=== PATIENT | female | born 1995 | race Caucasian/White ===

== ENCOUNTER → 2024-07-16 15:03 | Outpatient (BNVA) | payer BC, SELFPAY | PROVIDERS: Visit Provider Nurse Practitioner Women's Health | DX: N91.2 Amenorrhea, unspecified (principal); E66.01 Morbid (severe) obesity due to excess calories; Z68.41 Body mass index [BMI] 40.0-44.9, adult; Z78.9 Other specified health status | CPT/HCPCS: 81025; 83036; 84443; 84702 ==

== ENCOUNTER → 2024-07-22 08:04 | Outpatient (BNVA) | payer BC, SELFPAY | PROVIDERS: Visit Provider Nurse Practitioner Women's Health | DX: Z34.91 Encounter for supervision of normal pregnancy, unspecified, first trimester (principal) | CPT/HCPCS: 76817 ==

== ENCOUNTER 2024-07-25 18:26 | Emergency (ER) | payer BC, SELFPAY ==
[2024-07-25 18:33] VITALS: BP 123/84; PULSE 73; RESP 18; TEMP 36.6; O2SAT 99; BMI 42.3
[2024-07-25 19:43] LABS: Alanine Aminotransferase 19 U/L (0-33); Albumin Level 4.3 g/dL (3.5-5.2); Alkaline Phosphatase 94 U/L (35-105); Anion Gap 17.2 (5-19); Aspartate Amino Transferase 16 U/L (0-32); Blood Urea Nitrogen 7 mg/dL (6-20); Calcium 9.4 mg/dL (8.5-10.5); Carbon Dioxide 21 mmol/L (22-29); Chloride 102 mmol/L (98-107); Creatinine Clr Calc Pharmacy 175.3442; Globulin 3.8 g/dL (1.3-4.6); Glomerular Filtration Rate 118.2 mL/min (90-130); Glucose 91 mg/dL (65-115); Lipase 32 U/L (13-60); Osmolality Calculated 280 mOsm/kg (285-295); Potassium 4.2 mmol/L (3.5-5.1); Sodium 136 mmol/L (136-145); Total Bilirubin 0.2 mg/dL (0.15-1.2); Total Protein 8.1 g/dL (6.6-8.7)
[2024-07-25 20:07] VITALS: BP 124/67; PULSE 75; RESP 18; O2SAT 100
[2024-07-25 20:09] LABS: Bilirubin Urine Negative (Negative); Blood Urine Negative (Negative); Glucose Urine UA Negative (Normal); Ketones Urine Negative (Negative); Leukocyte Esterase Urine Trace (Negative); Nitrate Urine Negative (Negative); Protein Urine Negative (Negative); Specific Gravity, Urine 1.009 (1.005-1.030); Urine Appearance Clear (CLEAR); Urine Color Yellow (Yellow); Urobilinogen Urine 0.2 mg/dL (Negative); pH Urine 5.5 (5-7)
[2024-07-25 20:11] LABS: Add Urine Microscopic? YES; Bacteria Urine None Seen /hpf; Hyaline Casts Urine 0-4 /lpf; RBC Urine 0-2 /hpf (0-2); Squamous Epithelial Cell Urine 0-5 /hpf (0-5)
--- NOTE | 2024-07-25 20:18 | ED_ITS ---
HPI - Nausea/Vomiting/Diarrhea 2 General: Chief complaint: Nausea/Vomiting/Diarrhea Stated complaint: Nausa 7 Weeks Time Seen by Provider: 07/25/24 19:54 Source: patient Mode of arrival: ambulatory Limitations: no limitations History of Present Illness: 29yo female presents with SO for evaluat ion of nausea/ vomiting in the presence of . Patient is at approximately 7 weeks gestation. Reports she has tried unisom/vit B6, reglan, phenergan. States she was seen in [facility] 2 days ago for same complaint and received zofran, which helped. Reports she was diagnosed with a UTI and prescribed nitrofurantoin. States her OBGYN does not want her taking zofran due to potential side effects to the baby. States she has been getting dizzy with standing. States she is not able to keep fluids down and has had some abdominal cramping. Denies vaginal bleeding, fever, chills, body aches, diarrhea, dysuria, any other concerns at this time. Associated nausea: Yes Associated symtoms: Reports nausea; Denies chest pain or dysuria Related Data Home Medications ?Medication ?Instructions ?Recorded ?Confirmed bupropion HCl 300 mg 24 hr tablet, 300 mg PO QAM 07/1607/16/24 extended release (Wellbutrin XL) fexofenadine 180 mg tablet 180 mg PO DAILY 07/16/24 (Sue Allergy) linoleic acid-sunflower oil 500 cap PO BID 07/16/24 mg-1,000 mg capsule omeprazole 40 mg capsule,delayed 40 mg PO DAILY 07/16/24 release vits no.126-ferrous fum tab PO DAILY 07/16/24 07/16/24 28 mg iron-folic acid 800 mcg tablet (Classic ) Previous Rx's ?Medication ?Instructions ?Recorded promethazine 25 mg tablet 25 mg PO Q6H PRN nausea and 07/19/24 vomiting #60 tabs metoclopramide HCl 10 mg tablet 10 mg PO Q6H PRN nause a and 07/25/24 vomiting #30 tabs Allergies Allergy/AdvReac Type Severity Reaction Status Date / Time Penicillins Allergy ALGY-Hives Verified 07/25/24 18:37 tree nuts Allergy Severe ALGY-Anaphy Uncoded 07/16/24 14:04 laxis Review of Systems 2 Const: Denies: fever(s), chills or body aches Card: Denies: chest pain Resp: Denies: dyspnea GI: Reports: nausea and vomiting; Denies: diarrhea : Denies: difficulty voiding, dysuria, oliguria or vaginal bleeding PFSH ED 2 PFSH: Medical History (Updated 07/25/24 @ 23:02 by LAUREL Moya) Anxiety and depression Chronic GERD Asthma No pertinent past medical history neghx: htn, dm, thyroid, dvt/pe PCP: [facility] History (Updated 07/16/24 @ 14:28 by Agnes Bates APN, WHNP) History of endoscopy (~2023) normal evaluation. No pertinent past surgical history Family History Mother Thyroid disease Denies family history of Colon cancer Ovarian cancer Prostate cancer Diabetes Heart disease Hyperlipidemia Breast cancer Hypertension Uterine cancer Stroke Social History Smoking and tobacco/nicotine status: never used tobacco/nicotine Physical Exam 2 Const: COMMON NORMALS: no acute distress, patient oriented x3, healthy appearing and alert GENERAL APPEARANCE: cooperative O RIENTATION/CONSCIOUSNESS: Yes awake OTHER: Patient is ambulatory to the exam room unassisted. She is sitting upright on the stretcher in [facility]. She is interactive with exam with no difficulty. Family is at bedside. HENMT: COMMON NORMALS: normocephalic and atraumatic HEAD & SCALP: n ormocephalic and atraumatic Resp: COMMON NORMALS: normal respiratory effort Back/Pelvis: COMMON NORMALS: thoraco-lumbar ROM normal Extremity: COMMON NORMALS: full ROM Neuro: COMMON NORMALS: patient oriented x3 and moves all extremities S ENSORIUM/ORIENTATION: Yes alert Psych: COMMON NORMALS: cooperative Course 2 Vital Signs: Vital signs: Vital Signs Temperature 97.9 F 07/25/24 18:33 Pulse Rate 81 07/25/24 23:31 Respiratory Rate 18 07/25/24 23:31 Blood Pressure 109/62 07/25/24 23:31 Pulse Oximetry 99 07/25/24 23:31 Oxygen Delivery Me thod Room Air 07/25/24 22:25 MDM - Nausea/Vomiting/Diarrhea Medical Decision Making 29yo female presents with SO for evaluation of nausea in the presence of . Patient is at approximately 7 weeks gestation. Reports she has tried unisom/vit B6, reglan, phenergan. States she was seen in [facility] 2 days ago for same complaint and received zofran, which helped. Reports she was diagnosed with a UTI and prescribed nitrofurantoin. States her OBGYN does not want her taking zofran due to potential side effects to the baby. States she has been getting dizzy with standing. States she is not able to keep fluids down and has had some abdominal cramping. Denies vaginal bleeding, fever, chills, body aches, diarrhea, dysuria, any other concerns at this time. Patients is nontoxic in appearance. Vital signs stable. Differential diagnoses include but are not limited to: N/v of , dehydration, acute cystitis. pyelonephritis No leukocytosis or anemia, white blood cell count noted to be 11.18 with hemoglobin of 13.3. No electrolyte, renal, or hepatic abnormalities noted. No bacteria noted on UA. Discussed these findings with patient and family. Advised that the nitrofurantoin does appear to be treating the urinary tract infection. Patient did receive 1 L normal saline bolus with metoclopramide and diphenhydramine. She did report improvement in her symptoms. Prescription of metoclopramide was sent to patient's pharmacy. Advised that she use it with diphenhydramine. Discussed use of abi as well to help with nausea and advised to encourage fluid intake. Recommend she contact her CYBER TRANSPORT SYSTEMS SPECIALIST in the next few days with an update of symptoms and to discuss to recheck. Return precautions provided. Patient and family state understanding and have no further questions or concerns at this time. Lab Data I reviewed the patient's lab results. 07/25/24 20:37 07/25/24 19:21 Laboratory Results WBC 11.18 10^3/uL (3.29-11.43) 07/25/24 20:37 Corrected WBC Cancelled 07/25/24 19:21 RBC 5.05 10^6/uL (3.85-5.65) 07/25/24 20:37 Hgb 13.30 g/dL (11.27-16.99) 07/25/24 20:37 Hct 42.3 % (36-47) 07/25/24 20:37 MCV 83.8 fl (85-98) L 07/25/24 20:37 MCH 26.3 pg (27-33) L 07/25/24 20:37 MCHC 31.4 g/dL (30-55) 07/25/24 20:37 RDW 14.6 % (12.1-15.1) 07/25/24 20:37 Plt Count 182 10^3/cmm (157-399) 07/25/24 20:37 MPV 12.1 fL (7.4-10.4) H 07/25/24 20:37 Gran % Cancelled 07/25/24 19:21 Neut % (Auto) 69.8 % 07/25/24 20:37 Lymph % (Auto) 23.5 % 07/25/24 20:37 [place] % (Auto) 4.7 % 07/25/24 20:37 Eos % (Auto) 1.4 % 07/25/24 20:37 Baso % (Auto) 0.3 % 07/25/24 20:37 Neut # (Auto) 7.80 10^3/uL (1.8-7.7) H 07/25/24 20:37 Lymph # (Auto) 2.6 10^3/uL (0.8-4.8) 07/25/24 20:37 [place] # (Auto) 0.5 10^3/uL (0.2-0.9) 07/25/24 20:37 Eos # (Auto) 0.2 10^3/uL (0.0-0.8) 07/25/24 20:37 Baso # (Auto) 0.0 10^3/uL (0.0-0.1) 07/25/24 20:37 Absolute Gran (auto) Cancelled 07/25/24 19:21 Nucleated RBC % (auto) 0 % 07/25/24 20: Nucleated RBCs # 0.0 /100WBC 07/25/24 20:37 Sodium 136 mmol/L (136-145) 07/25/24 19:21 Potassium 4.2 mmol/L (3.5-5.1) 07/25/24 19:21 Chloride 102 mmol/L (98-107) 07/25/24 19:21 Carbon Dioxide 21 mmol/L (22-29) L 07/25/24 19:21 Anion Gap 17.2 (5-19) 07/25/24 19:21 BUN 7 mg/dL (6-20) 07/25/24 19:21 Creatinine 0.6 mg/dL (0.5-0.9) 07/25/24 19:21 GFR Calculation 118.2 mL/min (90-130) 07/25/24 19:21 Glucose 91 mg/dL (65-115) 07/25/24 19:21 Calculated Osmolality 280 mOsm/kg (285-295) L 07/25/24 19:21 Calcium 9.4 mg/dL (8.5-10.5) 07/25/24 19:21 Total Bilirubin 0.2 mg/dL (0.15-1.2) 07/25/24 19:21 AST 16 U/L (0-32) 07/25/24 19:21 ALT 19 U/L (0-33) 07/25/24 19:21 Alkaline Phosphatase 94 U/L (35-105) 07/25/24 19:21 Total Protein 8.1 g/dL (6.6-8.7) 07/25/24 19:21 Albumin 4.3 g/dL (3.5-5.2) 07/25/24 19:21 Globulin 3.8 g/dL (1.3-4.6) 07/25/24 19:21 Lipase 32 U/L (13-60) 07/25/24 19:21 Urine Color Yellow (Yellow) 07/25/24 20:03 Urine Appearance Clear (CLEAR) 07/25/24 20:03 Urine pH 5.5 (5-7) 07/25/24 20:03 Ur Specific Jackson 1.009 (1.005-1.030) 07/25/24 20:03 Urine Protein Negative (Negative) 07/25/24 20:03 Urine Glucose (UA) Negative (Normal) 07/25/24 20:03 Urine Ketones Negative (Negative) 07/25/24 20:03 Urine Blood Negative (Negative) 07/25/24 20:03 Urine Nitrate Negative (Negative) 07/25/24 20:03 Urine Bilirubin Negative (Negative) 07/25/24 20:03 Urine Urobilinogen 0.2 mg/dL (Negative) 07/25/24 20:03 Ur Leukocyte Esterase Trace (Negative) A 07/25/24 20:03 Urine RBC 0-2 /hpf (0-2) 07/25/24 20:03 Urine WBC 11-20 /hpf (0-5) H 07/25/24 20:03 Ur Squamous Epith Cells 0-5 /hpf (0-5) 07/25/24 20:03 Amorphous Sediment Not Reportable 07/25/24 20:03 Urine Bacteria None seen /hpf (NONE) 07/25/24 20:03 Hyaline Casts 0-4 /lpf H 07/25/24 20:03 No radiology studies performed this visit Discharge Plan Discharge Patient Disposition: Home Clinical Impression: Nausea/vomiting in Condition: Stable Prescriptions: New metoclopramide HCl 10 mg tablet 10 mg PO Q6H PRN (Reason: nausea and vomiting) Qty: 30 0RF No Action omeprazole 40 mg capsule,delayed release(DR/EC) 40 mg PO DAILY bupropion HCl [Wellbutrin XL] 300 mg tablet extended release 24 hr 300 mg PO QAM fexofenadine [Sue Allergy] 180 mg tablet 180 mg PO DAILY Classic 28 mg iron- 800 mcg tablet PO DAILY linoleic acid-sunflower oil 500-1,000 mg capsule PO BID promethazine 25 mg tablet 25 mg PO Q6H PRN (Reason: nausea and vomiting) Qty: 60 0RF Discharge Orders: Discharge ED (Routine); Ordered 07/25/24 Ordered By: Sumeet Crowley Discharge Diet: Advance as tolerated Discharge Activity: Resume usual activity Patient Instructions: Nausea and Vomiting in (ED) Activity Restrictions/Additional Instructions: A prescription of metoclopramide has been sent to the pharmacy for you to use for the nausea. You may also use [id number] Benadryl with the metoclopramide to help with the nausea. Do not take the metoclopramide with the promethazine, only 1 or the other. 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
[2024-07-25 20:35] VITALS: BP 124/67; PULSE 67; RESP 16; O2SAT 100
[2024-07-25 20:59] LABS: Basophils % 0.3 %; Eosinophils # 0.2 10^3/uL (0.0-0.8); Eosinophils % 1.4 %; Hematocrit 42.3 % (36-47); Lymphocytes # 2.6 10^3/uL (0.8-4.8); Lymphocytes % 23.5 %; Mean Corpuscular HGB Conc 31.4 g/dL (30-55); Mean Corpuscular Hemoglobin 26.3 pg (27-33); Mean Corpuscular Volume 83.8 fl (85-98); Mean Platelet Volume 12.1 fL (7.4-10.4); Monocytes # 0.5 10^3/uL (0.2-0.9); Monocytes % 4.7 %; Neutrophils % 69.8 %; Nucleated Red Blood Cells % 0 %; Platelet Count 182 10^3/cmm (157-399); Red Blood Count 5.05 10^6/uL (3.85-5.65); Red Cell Distribution Width 14.6 % (12.1-15.1); White Blood Count 11.18 10^3/uL (3.29-11.43)
[2024-07-25 21:33] VITALS: BP 104/60; PULSE 69; RESP 16; O2SAT 100
[2024-07-25] MEDS: sodium chloride 0.9% 1,000 ML 999 ML IV (21:35)
[2024-07-25] MEDS: metoclopramide 5 mg/mL SDV 2 mL 10 MG XX (21:35)
[2024-07-25] MEDS: diphenhydrAMINE 50 mg/mL SDV 1mL 25 MG IVP ×2 (21:35→22:05)
[2024-07-25 22:25] VITALS: BP 109/51; PULSE 79; RESP 16; O2SAT 99
[2024-07-25 23:31] VITALS: BP 109/62; PULSE 81; RESP 18; O2SAT 99
== END 2024-07-25 23:35 | disposition home or self-care (01) ==
PROVIDERS: Emergency Medicine; Emergency Provider Nurse Practitioner
DX: O21.9 Vomiting of pregnancy, unspecified (principal); Z3A.01 Less than 8 weeks gestation of pregnancy
CPT/HCPCS: 36415; 80053; 81001; 83690; 85025; 96374; 96375; 99284; J1200; J2765; J7030

== ENCOUNTER → 2024-08-16 13:12 | Outpatient (BNVA) | payer BC, SELFPAY | PROVIDERS: Visit Provider Nurse Practitioner Women's Health | DX: Z34.91 Encounter for supervision of normal pregnancy, unspecified, first trimester (principal) | CPT/HCPCS: 80307; 84315; 85025; 86592; 86762; 86803; 86850; 86900; 87086; 87340; 87806 ==

== ENCOUNTER → 2024-09-03 08:00 | Outpatient (BNVA) | payer BC, SELFPAY | PROVIDERS: Visit Provider Nurse Practitioner Women's Health | DX: O09.90 Supervision of high risk pregnancy, unspecified, unspecified trimester (principal); O09.299 Supervision of pregnancy with other poor reproductive or obstetric history, unspecified trimester | CPT/HCPCS: 82950; 84315; 86850; 86900; 87491; 87591; 87624; 87661 ==

== ENCOUNTER → 2024-09-26 14:04 | Outpatient (BNVA) | payer BC, SELFPAY | PROVIDERS: Visit Provider Nurse Practitioner Women's Health | DX: Z34.80 Encounter for supervision of other normal pregnancy, unspecified trimester (principal) | CPT/HCPCS: 84315; 87086 ==

== ENCOUNTER 2024-10-06 12:39 | Outpatient (CLI) | payer BC, SELFPAY ==
[2024-10-06 13:02] LABS: Total Volume, Urine 3500 mL
== END 2024-10-06 12:40 | disposition home or self-care (01) ==
PROVIDERS: Visit Provider Nurse Practitioner Women's Health
DX: O09.299 Supervision of pregnancy with other poor reproductive or obstetric history, unspecified trimester (principal)
CPT/HCPCS: 84156

== ENCOUNTER → 2024-10-28 09:27 | Outpatient (BNVA) | payer BC, SELFPAY | PROVIDERS: Visit Provider Nurse Practitioner Women's Health | DX: Z36.9 Encounter for antenatal screening, unspecified (principal) | CPT/HCPCS: 76805 ==

== ENCOUNTER → 2024-11-08 14:06 | Outpatient (BNVA) | payer BC, SELFPAY | PROVIDERS: Visit Provider Nurse Practitioner Women's Health | DX: Z34.80 Encounter for supervision of other normal pregnancy, unspecified trimester (principal) | CPT/HCPCS: 84315 ==

== ENCOUNTER 2024-12-02 11:21 | Outpatient (CLI) | payer BC, SELFPAY ==
[2024-12-02 11:21] VITALS: BMI 27.1
[2024-12-02 11:39] VITALS: BP 125/64; PULSE 74
[2024-12-02 11:54] VITALS: BP 116/65; PULSE 75
[2024-12-02 12:09] VITALS: BP 119/66; PULSE 82
[2024-12-02 12:11] LABS: Glucose Urine UA Negative (Normal); Nitrate Urine Negative (Negative); Specific Gravity, Urine 1.012 (1.005-1.030)
[2024-12-02 12:24] VITALS: BP 115/64; PULSE 74
[2024-12-02 12:36] VITALS: BP 119/66; PULSE 82; RESP 17; O2SAT 98
== END 2024-12-02 12:36 | disposition home or self-care (01) ==
LOC: OPOB 11:27 → OBGYN 11:28
PROVIDERS: Visit Provider Obstetrics & Gynecology
DX: O26.899 Other specified pregnancy related conditions, unspecified trimester (principal); Z3A.00 Weeks of gestation of pregnancy not specified; R10.9 Unspecified abdominal pain; R25.2 Cramp and spasm
CPT/HCPCS: 81001; 99211

== ENCOUNTER → 2024-12-11 15:12 | Outpatient (BNVA) | payer BC, SELFPAY | PROVIDERS: Visit Provider Nurse Practitioner Women's Health | DX: Z34.90 Encounter for supervision of normal pregnancy, unspecified, unspecified trimester (principal); Z34.80 Encounter for supervision of other normal pregnancy, unspecified trimester | CPT/HCPCS: 82950; 84315; 85025 ==

== ENCOUNTER → 2024-12-18 14:04 | Outpatient (BNVA) | payer BC, SELFPAY | PROVIDERS: Visit Provider Nurse Practitioner Women's Health | DX: R10.2 Pelvic and perineal pain (principal) | CPT/HCPCS: 76815; 76817 ==

== ENCOUNTER → 2024-12-25 13:59 | Outpatient (BNVA) | payer BC, SELFPAY | PROVIDERS: Visit Provider Obstetrics & Gynecology | DX: Z34.90 Encounter for supervision of normal pregnancy, unspecified, unspecified trimester (principal) | CPT/HCPCS: 84315 ==

== ENCOUNTER 2025-01-08 07:49 | Outpatient (CLI) | payer BC, SELFPAY ==
--- NOTE | 2025-01-08 08:00 | USR_ITS ---
PROCEDURE INFORMATION: Exam: US , Follow up Exam date and time: 01/08/2025 8:01 AM Age: 29 years old Clinical indication: Screening exam; Routine US, uterus; Additional info: Z34.80 - encounter for supervision of other normal pregna. . . LABS AND CLINICAL REPORTS: Last menstrual period start date: Unknown Gestational age (Established): 31 w 2 d Estimated due date (Established): 03/10/2025 TECHNIQUE: Imaging protocol: Transabdominal ultrasound of the uterus, real time with image documentation. Follow-up (eg, re-evaluation of size by measuring standard growth parameters and amniotic fluid volume, re-evaluation of organ system(s) suspected or confirmed to be abnormal on a previous scan). COMPARISON: US OB lmt with transvaginal 12/18/2024 2:14 PM FINDINGS: Gestation: Single live intrauterine heart rate: 135 bpm presentation and position: Cephalic presentation Placenta: Placenta is posterior Amniotic fluid index: JULIA is 14.21 cm. BIOMETRY: Gestational age (AUA): Estimated gestational age 32 week 2 day Estimated due date (AUA): 03/03/2025 Estimated weight: 1966.39 g. EFW by AC, BPD, FL, HC, Hadlock 1985 75th percentile Biparietal diameter (BPD): 7.87 cm. EGA (BPD) is 31 w 4 d. 48.8 % percentile Head circumference (HC): 29.11 cm. EGA (HC) is 32 w 1 d. 34 % percentile Abdominal circumference (AC): 28.53 cm. EGA (AC) is 32 w 4 d. 82 % percentile Femur length (FL): 6.28 cm. EGA (FL) is 32 w 4 d. 70.2 % percentile HC/AC: 1.02. (Normal range: 0.96 - 1.13) FL/HC: 21.57. (Normal range: 19.33 - 21.36) FL/BPD: 79.8. (Normal range: 71 - 87) FL/AC: 22.01. (Normal range: 20 - 24) MATERNAL: Cervix: Cervix is 4.1 cm in length and closed. US/[place] [id number] IMPRESSION: Single live intrauterine of approximately 32 weeks 2 days gestational age.
== END 2025-01-08 07:50 | disposition home or self-care (01) ==
LOC: RAD 07:50
PROVIDERS: PCP Family Medicine; Visit Provider Obstetrics & Gynecology
DX: Z34.80 Encounter for supervision of other normal pregnancy, unspecified trimester (principal)
CPT/HCPCS: 76816

== ENCOUNTER → 2025-01-13 14:09 | Outpatient (BNVA) | payer BC, SELFPAY | PROVIDERS: PCP Family Medicine; Visit Provider Obstetrics & Gynecology | DX: O09.893 Supervision of other high risk pregnancies, third trimester (principal); Z3A.32 32 weeks gestation of pregnancy | CPT/HCPCS: 84315 ==

== ENCOUNTER → 2025-01-27 13:11 | Outpatient (BNVA) | payer BC, SELFPAY | PROVIDERS: PCP Family Medicine; Visit Provider Obstetrics & Gynecology | DX: O09.893 Supervision of other high risk pregnancies, third trimester (principal); Z3A.34 34 weeks gestation of pregnancy | CPT/HCPCS: 84315 ==

== ENCOUNTER 2025-02-06 19:07 | Outpatient (CLI) | payer BC, SELFPAY ==
[2025-02-06] VITALS (7 sets, daily range): BP systolic 115–125; BP diastolic 61–69; PULSE 73–82; TEMP 37–37.1; BMI 45.0
== END 2025-02-06 21:00 | disposition home or self-care (01) ==
LOC: OPOB 19:07 → OBGYN 19:09
PROVIDERS: PCP Family Medicine; Visit Provider Obstetrics & Gynecology
DX: O13.9 Gestational [pregnancy-induced] hypertension without significant proteinuria, unspecified trimester (principal); Z3A.00 Weeks of gestation of pregnancy not specified
CPT/HCPCS: 59025; 99211

== ENCOUNTER 2025-02-10 11:35 | Outpatient (CLI) | payer BC, SELFPAY ==
--- NOTE | 2025-02-10 11:30 | USR_ITS ---
PROCEDURE INFORMATION: Exam: US , Follow up Exam date and time: 02/10/2025 11:50 AM Age: 30 years old Clinical indication: Screening exam; Routine US, uterus; Additional info: O09.299 - supervision of with other poor reprod. . . , LABS AND CLINICAL REPORTS: Gestational age (Established): 36 w 0 d Estimated due date (Established): 03/10/2025 TECHNIQUE: Imaging protocol: Transabdominal ultrasound of the uterus, real time with image documentation. Follow-up (eg, re-evaluation of size by measuring standard growth parameters and amniotic fluid volume, re-evaluation of organ system(s) suspected or confirmed to be abnormal on a previous scan). COMPARISON: [place] [id number] 01/08/2025 8:01 AM FINDINGS: Gestation: Intrauterine gestation. heart rate: 135 bpm presentation and position: Cephalic. Amniotic fluid index: JULIA is 13.94 cm. Maximum vertical pocket 5.3 cm. BIOMETRY: Gestational age (AUA): 36 weeks 1 day. Estimated due date (AUA): 03/09/2025. Estimated weight: 2829.48 g. EFW by AC, BPD, FL, HC, Hadlock 1985 Biparietal diameter (BPD): 8.69 cm. EGA (BPD) is 35 w 1 d. 31.5 % percentile Head circumference (HC): 32.86 cm. EGA (HC) is 37 w 2 d. 52.7 % percentile Abdominal circumference (AC): 31.8 cm. EGA (AC) is 35 w 5 d. 52.2 % percentile Femur length (FL): 7.12 cm. EGA (FL) is 36 w 3 d. 58.5 % percentile HC/AC: 1.03. (Normal range: 0.92 - 1.08) FL/HC: 21.67. (Normal range: 20.2 - 22.17) FL/BPD: 81.93. (Normal range: 71 - 87) FL/AC: 22.39. (Normal range: 20 - 24) BIOPHYSICAL PROFILE: Biophysical profile score (BPP): 8/8. MATERNAL: Cervix: Cervical length measures 6 cm. US/US OB F/U w BPP wo NST IMPRESSION: 1. Single live intrauterine with normal heart rate. 2. Biophysical profile score 12/06. 3. Estimated gestational age 36 weeks 1 day.
== END 2025-02-10 11:36 | disposition home or self-care (01) ==
LOC: RAD 11:35
PROVIDERS: PCP Family Medicine; Visit Provider Obstetrics & Gynecology
DX: O09.293 Supervision of pregnancy with other poor reproductive or obstetric history, third trimester (principal); Z3A.36 36 weeks gestation of pregnancy
CPT/HCPCS: 76816; 76819; 84315; 87081

== ENCOUNTER → 2025-02-17 12:50 | Outpatient (BNVA) | payer BC, SELFPAY | PROVIDERS: PCP Family Medicine; Visit Provider Obstetrics & Gynecology | DX: O09.293 Supervision of pregnancy with other poor reproductive or obstetric history, third trimester (principal); Z3A.32 32 weeks gestation of pregnancy; E66.9 Obesity, unspecified; Z68.41 Body mass index [BMI] 40.0-44.9, adult; Z87.59 Personal history of other complications of pregnancy, childbirth and the puerperium | CPT/HCPCS: 84315 ==

== ENCOUNTER 2025-02-19 10:50 | Outpatient (CLI) | payer BC, SELFPAY ==
[2025-02-19] VITALS (7 sets, daily range): BP systolic 118–136; BP diastolic 67–84; PULSE 69–102; BMI 46.5
[2025-02-19 12:38] LABS: Hematocrit 34.3 % (36-47); Hemoglobin 10.90 g/dL (11.27-16.99); Mean Corpuscular HGB Conc 31.8 g/dL (30-55); Mean Corpuscular Hemoglobin 26.0 pg (27-33); Mean Corpuscular Volume 81.7 fl (85-98); Nucleated Red Blood Cells % 0 %; Platelet Count 140 10^3/cmm (157-399); Red Blood Count 4.20 10^6/uL (3.85-5.65); White Blood Count 10.00 10^3/uL (3.29-11.43)
[2025-02-19 12:40] LABS: Glucose Urine UA Negative (Normal); Nitrate Urine Negative (Negative); Specific Gravity, Urine 1.009 (1.005-1.030)
[2025-02-19 12:45] LABS: Add Urine Microscopic? YES
[2025-02-19 12:59] LABS: Alanine Aminotransferase 13 U/L (0-33); Albumin Level 3.4 g/dL (3.5-5.2); Alkaline Phosphatase 120 U/L (35-105); Anion Gap 20.4 (5-19); Aspartate Amino Transferase 13 U/L (0-32); Blood Urea Nitrogen 5 mg/dL (6-20); Calcium 9.1 mg/dL (8.5-10.5); Carbon Dioxide 20 mmol/L (22-29); Chloride 103 mmol/L (98-107); Creatinine Clr Calc Pharmacy 275.9627; Globulin 3.5 g/dL (1.3-4.6); Glucose 105 mg/dL (65-115); Osmolality Calculated 286 mOsm/kg (285-295); Potassium 4.4 mmol/L (3.5-5.1); Sodium 139 mmol/L (136-145); Total Protein 6.9 g/dL (6.6-8.7); Uric Acid 5.1 mg/dL (2.4-5.7)
[2025-02-19 13:11] LABS: UPRO/UCREAT Ratio 0.13 mg/mg CR
== END 2025-02-19 13:30 | disposition home or self-care (01) ==
LOC: OPOB 10:52 → OBGYN 10:52
PROVIDERS: PCP Family Medicine; Visit Provider Family Medicine
DX: O13.9 Gestational [pregnancy-induced] hypertension without significant proteinuria, unspecified trimester (principal); Z3A.00 Weeks of gestation of pregnancy not specified; N89.8 Other specified noninflammatory disorders of vagina
CPT/HCPCS: 36415; 59025; 80053; 81001; 82570; 83615; 83986; 84112; 84156; 84550; 85025; 99211

== ENCOUNTER → 2025-02-24 12:55 | Outpatient (BNVA) | payer BC, SELFPAY | PROVIDERS: PCP Family Medicine; Visit Provider Obstetrics & Gynecology | DX: O09.893 Supervision of other high risk pregnancies, third trimester (principal); Z3A.38 38 weeks gestation of pregnancy; Z87.59 Personal history of other complications of pregnancy, childbirth and the puerperium; E66.89 Other obesity not elsewhere classified; Z68.42 Body mass index [BMI] 45.0-49.9, adult | CPT/HCPCS: 76819; 84315 ==

== ENCOUNTER 2025-02-26 10:21 | Outpatient (CLI) | payer BC, SELFPAY ==
[2025-02-26 10:20] VITALS: BMI 47.2
[2025-02-26 10:36] VITALS: BP 138/82; PULSE 67
[2025-02-26 10:48] LABS: Nitrazine Paper, PH Negative
[2025-02-26 10:56] VITALS: BP 123/75; PULSE 71
[2025-02-26 11:17] VITALS: BP 129/73; PULSE 78
== END 2025-02-26 11:25 | disposition home or self-care (01) ==
LOC: OPOB 10:23 → OBGYN 10:24
PROVIDERS: Absent Provider Obstetrics & Gynecology; PCP Family Medicine; Visit Provider Obstetrics & Gynecology
DX: O26.899 Other specified pregnancy related conditions, unspecified trimester (principal); Z3A.00 Weeks of gestation of pregnancy not specified; N89.8 Other specified noninflammatory disorders of vagina
CPT/HCPCS: 59025; 83986; 84112; 99211

== ENCOUNTER 2025-02-28 13:15 | Outpatient (CLI) | payer BC, SELFPAY ==
[2025-02-28 13:43] VITALS: BP 127/73; PULSE 68
[2025-02-28 13:51] VITALS: BMI 41.0
[2025-02-28 13:52] LABS: Nitrazine Paper, PH Negative
[2025-02-28 13:57] LABS: Glucose Urine UA Negative (Normal); Nitrate Urine Negative (Negative); Specific Gravity, Urine 1.003 (1.005-1.030)
[2025-02-28 14:00] VITALS: BP 130/81; PULSE 76
[2025-02-28 14:13] VITALS: BP 131/91; PULSE 105
[2025-02-28 14:28] VITALS: BP 130/77; PULSE 81
[2025-02-28 14:42] VITALS: TEMP 36.7
== END 2025-02-28 14:43 | disposition home or self-care (01) ==
LOC: OPOB 13:24 → OBGYN 14:23
PROVIDERS: Obstetrics & Gynecology; PCP Family Medicine; Visit Provider Obstetrics & Gynecology
DX: O26.899 Other specified pregnancy related conditions, unspecified trimester (principal); Z3A.00 Weeks of gestation of pregnancy not specified; N89.8 Other specified noninflammatory disorders of vagina
CPT/HCPCS: 59025; 81001; 83986; 84112; 99211

== ENCOUNTER 2025-03-03 14:48 | Outpatient (CLI) | payer BC, SELFPAY ==
[2025-03-03 14:50] VITALS: BMI 46.0
[2025-03-03 15:00] VITALS: BP 141/81; PULSE 85
[2025-03-03 15:15] VITALS: BP 126/55; PULSE 81
[2025-03-03 15:30] VITALS: BP 133/62; PULSE 80
[2025-03-03 15:45] VITALS: BP 134/66; PULSE 85
[2025-03-03 16:00] VITALS: BP 122/61; PULSE 84
[2025-03-03 16:10] VITALS: BP 134/66; PULSE 85; RESP 16
== END 2025-03-03 16:10 | disposition home or self-care (01) ==
LOC: OPOB 14:51 → OBGYN 14:51
PROVIDERS: Visit Provider Obstetrics & Gynecology
DX: O13.9 Gestational [pregnancy-induced] hypertension without significant proteinuria, unspecified trimester (principal); Z3A.00 Weeks of gestation of pregnancy not specified
CPT/HCPCS: 59025; 84315; 99211

== ENCOUNTER 2025-03-04 09:59 | Inpatient (IN) | payer BC, SELFPAY ==
[2025-03-04] VITALS (48 sets, daily range): BP systolic 98–140; BP diastolic 51–92; PULSE 53–90; TEMP 36.2; BMI 46.3
--- NOTE | 2025-03-04 10:35 | PM.OBGYHP ---
Providers/Chief Complaint Admitting Physician: Michele Orr MD Primary CORPORATE FITNESS PROGRAM COORDINATOR: Sudeep Mcfarland MD Chief Complaint: IOL HPI CORPORATE FITNESS PROGRAM COORDINATOR History of Present Illness Yessi Bay is a 30 year old female A1 EDC March 10, 2025 At 39 w 1 d No complications + active movements Admitted for elective induction of labor No c/o h/o x two Present Details : 4 Para: 2 Labs Rubella: Immune RPR: Negative GBS: Negative Medications/Allergies Home Medications ?Medication ?Instructions ?Recorded ?Confirmed ?Last Taken ?Type omeprazole 40 mg capsule,delayed 40 mg PO DAILY 07/16/24 03/04/25 03/04/25 08:30 History release vits no.126-ferrous fum 1 tab PO DAILY 07/16/24 03/04/25 03/04/25 08:30 History 28 mg iron-folic acid 800 mcg tablet (Classic ) aspirin 81 mg tablet,delayed 81 mg PO DAILY 09/03/24 03/04/25 03/04/25 08:30 History release (Adult Low Dose Aspirin) Allergies Allergy/AdvReac Type Severity Reaction Status Date / Time Penicillins Allergy ALGY-Hives Verified 03/03/25 14:14 tree nut Allergy ALGY-Anaphy Verified 03/03/25 14:14 laxis PFSH CORPORATE FITNESS PROGRAM COORDINATOR PFSH: Medical History (Updated 02/25/25 @ 09:20 by Sudeep Mcfarland MD) Anxiety and depression Chronic GERD Asthma No pertinent past medical history neghx: htn, dm, thyroid, dvt/pe PCP: [facility] Surgical History History of endoscopy (~2023) normal evaluation. 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 She did bring adequate evidence showing she her blood type is B POSITIVE. She has never recv'd rhogam in previous pregnancies. Specific Issues/Plans N/V- resolved at 22wks HX PRE-E in first at 22wks; on baby ASA OBESITY- morbid; start nst/bpp at 34 weeks ANXIETY/DEPRESSION; managed with wellbutrin Vitals/I&O/Wt Last Vital Signs Temp 98.2 F 03/05/25 00:30 Pulse 74 03/05/25 02:08 Resp 16 03/05/25 00:30 BP 119/72 03/05/25 02:08 Pulse Ox 97 03/05/25 00:30 O2 Del Method Room Air 03/05/25 00:30 03/04/25 03/04/25 03/05/25 14:59 22:59 06:59 Intake Total 25.80 / 25.80 1112.25 / 1138.05 Balance 25.80 / 25.80 1112.25 / 1138.05 Weight last 48 hrs Weight 287 lb Physical Exam Narrative: Weight 287 lbs; 5?5?; BMI 46 VS normal General comfortable Lungs: clear Cor: RRR Abd soft, nontender Cervix: 2 cm / 50% / -3 Ext: no edema External monitor: heart tracing good variability, + accelerations Data 03/04/25 10:07 Results Labs OB ([facility]): Obstetrics US 02/10/25 Obstetrics US/Biophysical Profile 02/24/25 Blood Type B Positive 03/04/25 Antibody Screen Negative 03/04/25 Hct, (36-47) 32.4 % L 03/04/25 Hgb, (11.27-16.99) 10.50 g/dL L 03/04/25 Rho(D) Type Rh positive 03/04/25 Plt Count, (157-399) 141 10^3/cmm L 03/04/25 Hep Bs Antigen, (Nonreactive) Non-reactive 08/16/24 Hepatitis C Antibody, (Nonreactive) Non-reactive 08/16/24 Rubella IgG Antibody, (0.0-10.0) 84.9 IU/mL H 08/16/24 RPR, (Nonreactive) Nonreactive 08/16/24 HIV 1&2 Ab & HIV 1 Ag, (Non-Reactiv) Non-reactive 08/16/24 TSH, (0.27-4.20) 3.82 uIU/mL 07/16/24 Glucose 1 Hr 50 gm, (85-140) 105 mg/dL 12/11/24 Hemoglobin A1c, (4.0-6.0) 5.2 % 07/16/24 Uric Acid, (2.4-5.7) 5.1 mg/dL 02/19/25 Ser , Semi-Qnt 70624.00 mIU/mL 07/16/24 HCG, Qual, (Negative) Positive H 07/16/24 Urine Opiates Screen, (Negative) Negative ng/mL 08/16/24 Ur Barbiturates Screen, (Negative) Negative ng/mL 08/16/24 Ur Phencyclidine Scrn, (Negative) Negative ng/mL 08/16/24 Ur Amphetamines Screen, (Negative) Negative ng/mL 08/16/24 U Benzodiazepines Scrn, (Negative) Negative ng/mL 08/16/24 Urine Cocaine Screen, (Negative) Negative ng/mL 08/16/24 U Marijuana (THC) Screen, (Negative) Negative ng/mL 08/16/24 Micro Urine Specimen 09/26/24 Pap Smear Interpret See note 09/03/24 A&P Assessment and plan 1. Supervision of other normal : 39 w 1 d fetus reassuring Admit for elective induction of labor Plan start Pitocin per protocol PDMP PDMP Reviewed: Not Reviewed Attestations Medical Necessity Statement*: patient at 39 w 1 d, admitted for induction of labor Coding Level of Care Code Acute Code for Chg Fwd Diagnoses Supervision of other normal Z34.80
[2025-03-04 10:38] LABS: Hematocrit 32.4 % (36-47); Hemoglobin 10.50 g/dL (11.27-16.99); Mean Corpuscular HGB Conc 32.4 g/dL (30-55); Mean Corpuscular Hemoglobin 26.8 pg (27-33); Mean Corpuscular Volume 82.7 fl (85-98); Nucleated Red Blood Cells % 0 %; Platelet Count 141 10^3/cmm (157-399); Red Blood Count 3.92 10^6/uL (3.85-5.65); White Blood Count 9.15 10^3/uL (3.29-11.43)
[2025-03-04] MEDS: oxytocin 30 UNIT/500 ML BAG IV (10:42)
[2025-03-04 10:55] LABS: Slide Review Slide Review Perform
--- NOTE | 2025-03-04 20:45 | PM.DELIVERY ---
Delivery Note: Date of delivery: March 04, 2025 Pre-delivery diagnoses: 39 w 1 d elective induction of labor Post-delivery diagnoses: 39 w 1 d elective induction of labor Procedure: induction of labor vaginal delivery Op report anesthesia: None Delivering Physician: Michele Orr MD Estimated blood loss (mL): 300 Findings: , vigorous Cord gases obtained Normal placenta and cord No episiotomy / lacerations EBL: 300 cc No complications Pre-Delivery Course: normal labor course fetus reassuring throughout Delivery: vaginal Post-Delivery Status: good History History History 4 Term 2 0 Miscarriages/Ectopic 1 Living Children 2 A&P Assessment and plan 1. Vaginal delivery: PDMP PDMP Reviewed: Not Reviewed Coding Level of Care Code Acute Code for Chg Fwd Diagnoses Vaginal delivery O80
[2025-03-04] MEDS: benzocaine-menthol 78 gm Canister 1 SPRAY TOPICAL (22:51)
[2025-03-05] VITALS (8 sets, daily range): BP systolic 105–138; BP diastolic 70–84; PULSE 67–101; RESP 16; TEMP 36.8–38; O2SAT 96–98
[2025-03-05] MEDS: HYDROcodone-acetaminophen 5-325 mg Tablet PO ×2 (02:08→16:25)
[2025-03-05] MEDS: PRENATAL VIT NO.130/IRON/FOLIC 1 EACH TABLET PO (05:40)
[2025-03-05 09:07] LABS: Hematocrit 30.6 % (36-47); Hemoglobin 9.70 g/dL (11.27-16.99); Mean Corpuscular HGB Conc 31.7 g/dL (30-55); Mean Corpuscular Hemoglobin 25.9 pg (27-33); Mean Corpuscular Volume 81.8 fl (85-98); Platelet Count 100 10^3/cmm (157-399); Red Blood Count 3.74 10^6/uL (3.85-5.65); White Blood Count 6.75 10^3/uL (3.29-11.43)
--- NOTE | 2025-03-05 12:40 | P.PN_ITS ---
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 Subjective: Interval history: no c/o no headaches, dizziness, nausea, abdominal pain, bleeding normal lochia mild perineal pain, relieved with pain meds eating, voiding, ambulating well Labor: Station: -1 Amniotic Membrane Status: Ruptured Monitor Mode: External Contraction Pattern: Regular Vitals/I&O/Wt Last Vital Signs Temp 100.4 F H 03/05/25 20:19 Pulse 79 03/05/25 20:19 Resp 16 03/05/25 20:19 BP 122/84 03/05/25 20:19 Pulse Ox 98 03/05/25 20:19 O2 Del Method Room Air 03/05/25 20:19 03/05/25 03/05/25 03/05/25 06:59 14:59 22:59 Intake Total 1361.95 / 1361.95 Balance 1361.95 / 1361.95 Weight last 48 hrs Weight 287 lb Physical Exam 2 Narrative: afebrile, VS normal comfortable, awake, alert Abd: soft, nontender. fundus firm Ext: no edema; nontender Data 03/05/25 08:55 A&P Assessment and plan 1. Vaginal delivery: PPD #1 doing well normal course continue care PDMP PDMP Reviewed: Last Reviewed 03/05/25 19:24 EST by Michele Orr MD Attestations 2 Medical Necessity Statement*: patient s/p vaginal delivery Coding Level of Care Code Acute Code for Chg Fwd Diagnoses Vaginal delivery O80
[2025-03-06] MEDS: PRENATAL VIT NO.130/IRON/FOLIC 1 EACH TABLET PO (04:37)
[2025-03-06 04:38] VITALS: BP 139/83; PULSE 78; RESP 16; TEMP 37; O2SAT 98
[2025-03-06 09:10] VITALS: BP 119/80; PULSE 73; RESP 16; TEMP 36.8; O2SAT 98
--- NOTE | 2025-03-06 11:50 | PM.OBGYDC ---
Discharge Providers SPECIAL EDUCATION DIRECTOR Date of Admission: 03/04/25 09:59 Date of Discharge: 03/06/25 Attending Provider at Admission: Michele Orr MD Attending Provider at Discharge: Michele Orr MD Consults: none Primary SPECIAL EDUCATION DIRECTOR: Michele Orr MD Diagnoses at Discharge Discharge Diagnosis 1. Vaginal delivery: Details from hospital stay: 30 y.o. A1 [facility] March 10, 2025 At 39 w 1 d No complications Admitted for elective induction of labor patient progressed to complete dilatation with normal labor course fetus was reassuring throughout She delivered vaginally without any complications had no episiotomy or lacerations patient did well and was discharged to home on the second day Reason for Visit Reason for Visit: IOL Brief History: 30 y.o. A1 [facility] March 10, 2025 At 39 w 1 d No complications Admitted for elective induction of labor Hospital Course Hospital Course 30 y.o. A1 [facility] March 10, 2025 At 39 w 1 d No complications Admitted for elective induction of labor patient progressed to complete dilatation with normal labor course fetus was reassuring throughout She delivered vaginally without any complications had no episiotomy or lacerations patient did well and was discharged to home on the second day Information Peripartum Data: Infant Delivery Method: Vaginal Laceration description: None Episiotomy description: None complications: none Physical Exam Narrative: afebrile, VS normal comfortable, awake, alert Abd: soft, nontender. fundus firm Ext: no edema; nontender History History History 4 Term 2 0 Miscarriages/Ectopic 1 Living Children 2 Discharge Data Studies Completed and Pending Laboratory Results WBC 6.75 10^3/uL (3.29-11.43) 03/05/25 08:55 RBC 3.74 10^6/uL (3.85-5.65) L 03/05/25 08:55 Hgb 9.70 g/dL (11.27-16.99) L 03/05/25 08:55 Hct 30.6 % (36-47) L 03/05/25 08:55 MCV 81.8 fl (85-98) L 03/05/25 08:55 MCH 25.9 pg (27-33) L 03/05/25 08:55 MCHC 31.7 g/dL (30-55) 03/05/25 08:55 RDW 14.6 % (12.1-15.1) 03/05/25 08:55 Plt Count 100 10^3/cmm (157-399) L 03/05/25 08:55 MPV 13.2 fL (7.4-10.4) H 03/05/25 08:55 Neut % (Auto) 73.1 % 03/04/25 10:07 Lymph % (Auto) 20.4 % 03/04/25 10:07 Ritchie % (Auto) 4.3 % 03/04/25 10:07 Eos % (Auto) 1.4 % 03/04/25 10:07 Baso % (Auto) 0.1 % 03/04/25 10:07 Neut # (Auto) 6.69 10^3/uL (1.8-7.7) 03/04/25 10:07 Lymph # (Auto) 1.9 10^3/uL (0.8-4.8) 03/04/25 10:07 Ritchie # (Auto) 0.4 10^3/uL (0.2-0.9) 03/04/25 10:07 Eos # (Auto) 0.1 10^3/uL (0.0-0.8) 03/04/25 10:07 Baso # (Auto) 0.0 10^3/uL (0.0-0.1) 03/04/25 10:07 Nucleated RBC % (auto) 0 % 03/04/25 10:07 Nucleated RBCs # 0.0 /100WBC 03/04/25 10:07 Blood Type B Positive 03/04/25 10:07 Rho(D) Type Rh positive 03/04/25 10:07 Antibody Screen Negative 03/04/25 10:07 Procedures Performed labor induction vaginal delivery Vitals Last Vital Signs Temp 98.3 F 03/06/25 09:10 Pulse 73 03/06/25 09:10 Resp 16 03/06/25 09:10 BP 119/80 03/06/25 09:10 Pulse Ox 98 03/06/25 09:10 O2 Del Method Room Air 03/06/25 04:38 Results Labs OB ([facility]): Obstetrics US 02/10/25 Obstetrics US/Biophysical Profile 02/24/25 Blood Type B Positive 03/04/25 Antibody Screen Negative 03/04/25 Hct, (36-47) 30.6 % L 03/05/25 Hgb, (11.27-16.99) 9.70 g/dL L 03/05/25 Rho(D) Type Rh positive 03/04/25 Plt Count, (157-399) 100 10^3/cmm L 03/05/25 Hep Bs Antigen, (Nonreactive) Non-reactive 08/16/24 Hepatitis C Antibody, (Nonreactive) Non-reactive 08/16/24 Rubella IgG Antibody, (0.0-10.0) 84.9 IU/mL H 08/16/24 RPR, (Nonreactive) Nonreactive 08/16/24 HIV 1&2 Ab & HIV 1 Ag, (Non-Reactiv) Non-reactive 08/16/24 TSH, (0.27-4.20) 3.82 uIU/mL 07/16/24 Glucose 1 Hr 50 gm, (85-140) 105 mg/dL 12/11/24 Hemoglobin A1c, (4.0-6.0) 5.2 % 07/16/24 Uric Acid, (2.4-5.7) 5.1 mg/dL 02/19/25 Ser , Semi-Qnt 92739.00 mIU/mL 07/16/24 HCG, Qual, (Negative) Positive H 07/16/24 Urine Opiates Screen, (Negative) Negative ng/mL 08/16/24 Ur Barbiturates Screen, (Negative) Negative ng/mL 08/16/24 Ur Phencyclidine Scrn, (Negative) Negative ng/mL 08/16/24 Ur Amphetamines Screen, (Negative) Negative ng/mL 08/16/24 U Benzodiazepines Scrn, (Negative) Negative ng/mL 08/16/24 Urine Cocaine Screen, (Negative) Negative ng/mL 08/16/24 U Marijuana (THC) Screen, (Negative) Negative ng/mL 08/16/24 Micro Urine Specimen 09/26/24 Pap Smear Interpret See note 09/03/24 Discharge Plan Discharge Patient Disposition: Home Condition: Stable Prescriptions: New oxycodone-acetaminophen [Percocet] 5-325 mg tablet 1 tab PO BID PRN (Reason: pain) Qty: 14 0RF Continued omeprazole 40 mg capsule,delayed release(DR/EC) 40 mg PO DAILY Classic 28 mg iron- 800 mcg tablet 1 tab PO DAILY Discontinued aspirin [Adult Low Dose Aspirin] 81 mg tablet,delayed release (DR/EC) 81 mg PO DAILY Discharge Order = DC NOW: Discharge Order (Routine); Ordered 03/05/25 Ordered By: Michele Orr Referrals: Michele Orr MD [Physician, SPECIAL EDUCATION DIRECTOR] - 04/16/25 1:45 pm Referral Note: Please call [facility] tomorrow to schedule an appointment to be seen in 6 weeks for a follow up. Discharge Diet: Usual diet Discharge Activity: Increase activity as tolerated Patient Instructions: Depression (DC), Opioid Withdrawal (DC), Preeclampsia and Eclampsia After Delivery (GEN), Hemorrhage (DC), OB Discharge Report, OB Food/Drug Interaction Guide, Opioid Safety, OB Home Care, OB Vaginal Deliveries - [facility], Patient Portal & [facility] Instructions, Abnormal Bleeding Discharge Attestations SPECIAL EDUCATION DIRECTOR Time Spent in Discharge Care*: less than 30 min Coding Level of Care Code Acute Code for Chg Fwd Diagnoses Vaginal delivery O80
== END 2025-03-06 09:30 | disposition home or self-care (01) | DRG 807 ==
LOC: OPOB 09:59 → OBGYN 09:59
PROVIDERS: Admitting Provider Obstetrics & Gynecology; Visit Provider Obstetrics & Gynecology
DX: O99.214 Obesity complicating childbirth (principal); Z37.0 Single live birth; Z3A.39 39 weeks gestation of pregnancy; E66.01 Morbid (severe) obesity due to excess calories; O99.344 Other mental disorders complicating childbirth; O75.89 Other specified complications of labor and delivery; F41.9 Anxiety disorder, unspecified; F32.A Depression, unspecified; K21.9 Gastro-esophageal reflux disease without esophagitis; J45.909 Unspecified asthma, uncomplicated; Z79.82 Long term (current) use of aspirin; Z79.899 Other long term (current) drug therapy
CPT/HCPCS: 36415; 59025; 59409; 85025; 85027; 86850; 86900; 99211; J2590; J7121; J9999